=== PATIENT | female | born 1965 | race Caucasian/White ===

== ENCOUNTER 2021-03-04 14:05 | Emergency (ER) | payer OTHER ==
[~2021-03-04] VITALS: Ht 154.9 cm; Wt 84.8 kg
[~2021-03-04 14:05] MED LIST: LEVO112T2 PO; OMEP20TA5 PO; TRAM50TA2 PO
--- NOTE | 2021-03-04 14:41 | NUR ---
pt rec'd to er c/o abd pain for 2 days left side labs drawn ua sent to labAWAITING EVALUATION BY ER PROVIDER.
[2021-03-04 14:54] LABS: BILIRUBIN,URINE NEGATIVE (NEGATIVE); COLOR,URINE YELLOW (YELLOW); LEUKOCYTE ESTERASE ,URINE NEGATIVE (NEGATIVE); NITRITE, URINE NEGATIVE (NEGATIVE); PROTEIN,URINE NEGATIVE (NEGATIVE); UGLUCOSE NEGATIVE (NEGATIVE); UROBILINOGEN,URINE 0.2 EU/dL (0.2)
[2021-03-04] MEDS ORDERED: KETOROLAC TROMETHAMINE INJ 30 MG/ML VIAL IV ONE (15:00)
[2021-03-04 15:04] LABS: BASOPHILS # (AUTO) 0.1 K/uL (0.0-0.2); BASOPHILS % (AUTO) 0.9 % (0.0-2.0); EOSINOPHILS % (AUTO) 1.1 % (0.0-6.0); HEMATOCRIT 39 % (33-45); LYMPHOCYTES # (AUTO) 1.9 K/uL (0.8-4.8); LYMPHOCYTES % (AUTO) 19.7 % (20.0-44.0); MEAN CORPUSCULAR HGB CONC 33 g/dl (31.0-36.0); MEAN CORPUSCULAR VOLUME 87 fL (82-100); MONOCYTES # (AUTO) 0.9 K/uL (0.1-1.30); MONOCYTES % (AUTO) 9.3 % (2.0-12.0); NEUTROPHILS # (AUTO) 6.8 K/uL (1.8-8.9); PLATELET COUNT (AUTO) 190 K/uL (150-450); WHITE BLOOD COUNT (AUTO) 9.8 K/uL (4.3-11.0)
[2021-03-04 15:11] LABS: BACTERIA,URINE 1+ /HPF (None Seen)
[2021-03-04] MEDS ORDERED: KETOROLAC TROMETHAMINE 15 MG/ML VIAL ONE (15:17)
[2021-03-04 16:22] LABS: ALBUMIN 3.9 g/dL (3.4-5.0); BILIRUBIN,DIRECT 0.3 mg/dL (0.0-0.2); BILIRUBIN,TOTAL 2.4 mg/dL (0.2-1.0); CALCIUM, SERUM 9.5 mg/dL (8.5-10.1); CREATININE 0.8 mg/dL (0.6-1.3); TOTAL PROTEIN, SERUM 7.2 g/dL (6.4-8.2)
[2021-03-04] MEDS ORDERED: IV NS 0.9% 250 ML IV ONE (16:27)
[2021-03-04] MEDS ORDERED: IOHEXOL-300 100 ML VIAL IV ONE (16:27)
[2021-03-04] MEDS ORDERED: CT SWABBABLE VALVE TRANS SET 1 EA INFUS.SET MC ONE (16:27)
[2021-03-04 16:31] LABS: POTASSIUM 4.2 mmol/L (3.5-5.1)
[2021-03-04] MEDS ORDERED: METR-147 PO (17:11)
[2021-03-04] MEDS ORDERED: CIPR500T5 PO (17:11)
--- NOTE | 2021-03-04 17:22 | NUR ---
Patient discharged to home in stable condition. Written and verbal after care instructions given. Patient verbalizes understanding of instruction.
--- NOTE | 2021-03-04 17:22 | NUR ---
IV removed. Catheter intact and site benign. Pressure and 4x4 applied to site. No bleeding noted.
[2021-03-04 17:23] VITALS: BP 125/78
== END 2021-03-04 17:23 | disposition home or self-care (01) ==
LOC: ER 14:10
DX: K57.32 Diverticulitis of large intestine without perforation or abscess without bleeding (principal); R10.32 Left lower quadrant pain; E03.9 Hypothyroidism, unspecified; Z98.890 Other specified postprocedural states; Z90.89 Acquired absence of other organs; Z79.899 Other long term (current) drug therapy
CPT/HCPCS: 36415; 74177; 80048; 80076; 81001; 83690; 85025; 96372; 99285; J1885; J7050; Q9967

== ENCOUNTER 2023-12-24 18:21 | Emergency (ER) | payer OTHER ==
[~2023-12-24] VITALS: Ht 154.9 cm; Wt 89.8 kg
[~2023-12-24 18:21] MED LIST changes: +CIPR500T5 PO; +METR-147 PO
[2023-12-24 18:27] VITALS: TEMP 98.6
[2023-12-24] MEDS ORDERED: IBUP-1955 PO (20:39)
[2023-12-24] MEDS ORDERED: LIDO30AD10 TP (20:39)
[2023-12-24] MEDS ORDERED: HYDR-4303 PO (20:39)
[2023-12-24] MEDS ORDERED: HYDROCODONE/APAP 5/325MG TABLET ONE (21:10)
[2023-12-24] MEDS: HYDROCODONE/APAP 5/325MG TABLET PO ONE (21:15)
[2023-12-24 21:59] VITALS: BP 128/71; O2SAT 99
== END 2023-12-24 21:59 | disposition home or self-care (01) ==
LOC: ER 18:25
DX: M25.552 Pain in left hip (principal); E03.9 Hypothyroidism, unspecified; Z90.89 Acquired absence of other organs; Z88.5 Allergy status to narcotic agent; Z79.899 Other long term (current) drug therapy; W01.0XXA Fall on same level from slipping, tripping and stumbling without subsequent striking against object, initial encounter; Y93.89 Activity, other specified; Y92.89 Other specified places as the place of occurrence of the external cause; Y99.8 Other external cause status
CPT/HCPCS: 73502

== ENCOUNTER 2024-01-27 21:23 | Emergency (ER) | payer OTHER ==
[~2024-01-27] VITALS: Ht 162.6 cm; Wt 90.7 kg
[~2024-01-27 21:23] MED LIST changes: +HYDR-4303 PO; +IBUP-1955 PO; +LIDO30AD10 TP
[2024-01-27 23:51] LABS: APPEARANCE,URINE CLEAR (CLEAR); BILIRUBIN,URINE NEGATIVE (NEGATIVE); BLOOD, URINE NEGATIVE Ery/uL (NEGATIVE); COLOR,URINE YELLOW (YELLOW); KETONES,URINE NEGATIVE (NEGATIVE); LEUKOCYTE ESTERASE ,URINE NEGATIVE (NEGATIVE); NITRITE, URINE NEGATIVE (NEGATIVE); PROTEIN,URINE NEGATIVE (NEGATIVE); UGLUCOSE NEGATIVE (NEGATIVE); UROBILINOGEN,URINE 0.2 EU/dL (0.2)
[2024-01-28 00:13] VITALS: BP 134/91; TEMP 99; O2SAT 98
== END 2024-01-28 00:13 | disposition home or self-care (01) ==
LOC: ER 21:28
DX: J11.1 Influenza due to unidentified influenza virus with other respiratory manifestations (principal); E03.9 Hypothyroidism, unspecified; Z98.890 Other specified postprocedural states; Z79.899 Other long term (current) drug therapy; Z20.822 Contact with and (suspected) exposure to COVID-19
CPT/HCPCS: 71045-TC